=== PATIENT | female | born 1970 | race Caucasian/White ===

== ENCOUNTER 2019-02-12 22:51 | Inpatient (IN) ==
[2019-02-12] MEDS ORDERED: NS 1,000 ML IV ONE (23:06)
--- NOTE | 2019-02-12 23:39 | PROVIDER DOCUMENTATION ---
This chart was entered by Iris Alvares Scribe, acting as scribe for Gracie Mckeon MD. HPI-General Adult - General Source: EMS Unable to obtain history due to:: altered - History of Present Illness -Gen Adult Nature of Presenting Problems: pt is a 48 yr old female presenting via EMS from home, per EMS pt was found by family in the floor and moved to the couch. pt slow to respond, does not follow commands, pt disoriented, repeats her name but does not say or answer anything else. pt has multiple abrasions over body and blood around mouth. no pain response with palpation Location of Pain/Injury: reports: face, hand(s), lower extremity (knees), feet, generalized Pain Radiation: reports: no radiation Severity: reports: mild Onset/Duration: reports: unsure <Gracie Mckeon - Last Filed: 02/13/19 00:55> <Edwar Black - Last Filed: 02/13/19 04:11> - General Stated Complaint: ams Time Seen by Provider: 02/12/19 23:03 Allergies/Adverse Reactions: Patient Allergies Allergy/AdvReac Type Severity Reaction Status Date / Time Penicillins Allergy Intermediate ITCHING Verified 12/27/12 11:18 Home Medications: Home Medication List Medication Instructions Recorded Confirmed Last Taken Type Ketorolac [Toradol] 10 mg PO Q6H PRN PRN #15 tablet 12/27/12 Unknown Rx Methocarbamol [Robaxin-750] 750 mg PO Q8H PRN PRN #15 tablet 12/27/12 Unknown Rx Tramadol [Ultram] 50 mg PO Q6H PRN PRN #20 tablet 12/27/12 Unknown Rx Amitriptyline [Elavil] 10 mg PO QHS 02/13/19 02/13/19 Unknown History Gabapentin 400 mg PO QHS 02/13/19 02/13/19 Unknown History Insulin Regular, Human [Novolin R] 02/13/19 02/13/19 Unknown History Methocarbamol 02/13/19 02/13/19 Unknown History Mirtazapine 45 mg PO QHS 02/13/19 02/13/19 Unknown History Olanzapine 15 mg PO QHS 02/13/19 02/13/19 Unknown History Review of Systems - Adult - REVIEW OF SYSTEMS - ADULT ROS:: unobtainable per condition Constitutional: reports: no symptoms reported Eyes: reports: no symptoms reported Ears, Nose, Mouth & Throat: reports: no symptoms reported Cardiovascular: reports: no symptoms reported Respiratory: reports: no symptoms reported Gastrointestinal: reports: no symptoms reported Genitourinary: reports: no symptoms reported Musculoskeletal: reports: no symptoms reported Integumentary: reports: no symptoms reported Neurological: reports: no symptoms reported Psychiatric: reports: no symptoms reported Endocrine: reports: no symptoms reported Hematologic/Lymphatic: reports: no symptoms reported Allergic/Immunologic: reports: no symptoms reported All Other Systems: Reviewed and Negative <Gracie Mckeon - Last Filed: 02/13/19 00:55> Past History - Adult - PAST MEDICAL HISTORY-ADULT Review of Records: reports: Old Records Reviewed, Nursing Assessment Review, Medications Reviewed, Social history reviewed & non-contributory. Major Childhood Illnesses: reports: denies history Cardiovascular: reports: denies history Respiratory: reports: denies history Gastrointestinal: reports: denies history Obstetrical/Gynecological: reports: denies history Genitourinary: reports: denies history Musculoskeletal: reports: denies history Neurological: reports: denies history Endocrine/Immune: reports: denies history Other Conditions: reports: denies history - IMMUNIZATION STATUS Childhood Immunizations: See Nurse Assessment Flu Vaccine: See Nurse Assessment - FAMILY HISTORY Family History: reviewed, not pertinent - SOCIAL HISTORY Living Situation: family <Gracie Mckeon - Last Filed: 02/13/19 00:55> Physical Exam-General - PHYSICAL EXAM-ADULT Initial Vital Signs Reviewed: Yes - CONSTITUTIONAL General Appearance: alert, no apparent distress, slow to respond, other (confused, repetative speech, does not answer questions) - EYES Eyes: PERRL/EOMI - HEAD, EARS, NOSE, MOUTH & THROAT HENMT: other (abrasion right eyebrow, dried blood around mouth) - NECK Neck: full range of motion, supple - RESPIRATORY Respiratory: lungs clear, normal breath sounds - CARDIOVASCULAR Cardiovascular: normal peripheral pulses, regular rate, rhythm - GASTROINTESTINAL (ABDOMEN) Abdominal Exam: normal bowel sounds, soft - LYMPHATIC Lymphatic: no adenopathy - MUSCULOSKELETAL Extremity: normal range of motion, other (abrasions bilateral knee, feet, hands) - SKIN Integumentary: abrasion(s) (multiple abrasions hand, feet, knees) - PSYCHIATRIC Psych/Mental Status: disoriented x 3 <Gracie Mckeon - Last Filed: 02/13/19 00:55> Progress - PLAN OF CARE/RESULTS Result Diagrams: 02/13/19 00:05 - EKG 1 Time of EKG reading by physician:: 00:15 EKG Read and Signed by:: Edwar Black EKG Interpretation (*Must complete 3 of following elements*): Abnormal (septal infarct-age undetermined) Rate: 67 Rhythm: sinus rhythm with short [place] and premature supraventricular complexes [place]: normal [place] Interval: shortened - CT/MRI 1 CT Study: Cervical Spine, Head Impression: Normal, See EMR Report 2 CT Study: Abdomen, Pelvis, other (chest) Impression: Normal, See EMR Report - CHANGE OF SHIFT REPORT (ED Provider) 1 Report Given and Care Transferred to:: Dr Black Time of Transfer: 23:55 Items Pending: Labs, XRAY Results, CT/MRI Results <Gracie Mckeon - Last Filed: 02/13/19 00:55> - PLAN OF CARE/RESULTS Progress/Plan/Lab Results: Vital Signs - 8 hr 02/13/19 01:00 Temperature 97.5 F L Pulse Rate 61 Respiratory Rate 16 Blood Pressure 163/79 O2 Sat by Pulse Oximetry 98 Laboratory Results - last 24 hr 02/12/19 02/13/19 02/13/19 23:51 00:05 00:05 WBC RBC Hgb Hct MCV MCH MCHC RDW Std Deviation Plt Count MPV Immature Gran % (Auto) Neut % (Auto) Lymph % (Auto) [place] % (Auto) Eos % (Auto) Baso % (Auto) Immature Gran # (Auto) Neut # (Auto) Lymph # (Auto) [place] # (Auto) Eos # (Auto) Baso # (Auto) PT INR PTT (Actin FS) Specimen Type ARTERIAL Sample Site R RADIAL pH 7.38 pCO2 39 pO2 71 HCO3 23.4 Base Excess -1.8 Oxyhemoglobin 92.2 L ABG O2 Sat (Calculated) 16.6 ABG O2 Saturation 96.7 ABG Carboxyhemoglobin 3.70 H ABG Methemoglobin 1.0 Rafi Test YES A-a O2 Difference 30.0 Total Hemoglobin 12.8 Lactate 0.80 Blood Gas Modality ROOM AIR FiO2 % 21.0 Sodium 142 Potassium 4.0 Chloride 107 Carbon Dioxide 24 L Anion Gap 11 BUN 9 Creatinine 0.7 Estimated GFR/1.73 m2 > 60 BUN/Creatinine Ratio 13 Glucose 92 POC Glucose Calculated Osmolality 281 Calcium 9.0 Magnesium Total Bilirubin 0.21 AST 39 H ALT 32 Alkaline Phosphatase 74 Ammonia Creatine Kinase 78 Troponin T Total Protein 6.3 Albumin 4.1 Globulin 2.2 Albumin/Globulin Ratio 1.9 Plasma Lactate Urine Source Urine Color Urine Turbidity Urine pH Ur Specific [place] Urine Protein Ur Glucose (Stick) Ur Ketones (Stick) Urine Blood Urine Nitrite Urine Bilirubin Urobilinogen Dipstick Urine Leukocytes Urine WBC (Auto) Urine RBC (Auto) U Epithel Cells (Auto) Urine Bacteria (Auto) Salicylates < 3.00 L Urine Opiates Screen Ur Oxycodone Screen Ur Methadone, Qual Acetaminophen < 1.2 L Ur Barbiturates Screen Ur Phencyclidine Scrn Ur Amphetamines Screen U Benzodiazepines Scrn Urine Cocaine Screen U Cannabinoids Screen Plasma/Serum Ethyl Alc 02/13/19 02/13/19 02/13/19 00:05 00:05 00:05 WBC 15.51 H RBC 4.19 L Hgb 12.8 Hct 39.0 MCV 93.1 MCH 30.5 MCHC 32.8 L RDW Std Deviation 13.3 Plt Count 212 MPV 10.9 H Immature Gran % (Auto) 0.3 Neut % (Auto) 80.0 H Lymph % (Auto) 14.5 L [place] % (Auto) 3.9 Eos % (Auto) 1.0 Baso % (Auto) 0.3 Immature Gran # (Auto) 0.05 H Neut # (Auto) 12.42 H Lymph # (Auto) 2.25 [place] # (Auto) 0.60 H Eos # (Auto) 0.15 Baso # (Auto) 0.04 PT 13.0 INR 0.91 PTT (Actin FS) 22.1 L Specimen Type Sample Site pH pCO2 pO2 HCO3 Base Excess Oxyhemoglobin ABG O2 Sat (Calculated) ABG O2 Saturation ABG Carboxyhemoglobin ABG Methemoglobin Rafi Test A-a O2 Difference Total Hemoglobin Lactate Blood Gas Modality FiO2 % Sodium Potassium Chloride Carbon Dioxide Anion Gap BUN Creatinine Estimated GFR/1.73 m2 BUN/Creatinine Ratio Glucose POC Glucose Calculated Osmolality Calcium Magnesium Total Bilirubin AST ALT Alkaline Phosphatase Ammonia Creatine Kinase Troponin T < 0.010 Total Protein Albumin Globulin Albumin/Globulin Ratio Plasma Lactate Urine Source Urine Color Urine Turbidity Urine pH Ur Specific [place] Urine Protein Ur Glucose (Stick) Ur Ketones (Stick) Urine Blood Urine Nitrite Urine Bilirubin Urobilinogen Dipstick Urine Leukocytes Urine WBC (Auto) Urine RBC (Auto) U Epithel Cells (Auto) Urine Bacteria (Auto) Salicylates Urine Opiates Screen Ur Oxycodone Screen Ur Methadone, Qual Acetaminophen Ur Barbiturates Screen Ur Phencyclidine Scrn Ur Amphetamines Screen U Benzodiazepines Scrn Urine Cocaine Screen U Cannabinoids Screen Plasma/Serum Ethyl Alc 02/13/19 02/13/19 02/13/19 00:05 00:05 00:05 WBC RBC Hgb Hct MCV MCH MCHC RDW Std Deviation Plt Count MPV Immature Gran % (Auto) Neut % (Auto) Lymph % (Auto) [place] % (Auto) Eos % (Auto) Baso % (Auto) Immature Gran # (Auto) Neut # (Auto) Lymph # (Auto) [place] # (Auto) Eos # (Auto) Baso # (Auto) PT INR PTT (Actin FS) Specimen Type Sample Site pH pCO2 pO2 HCO3 Base Excess Oxyhemoglobin ABG O2 Sat (Calculated) ABG O2 Saturation ABG Carboxyhemoglobin ABG Methemoglobin Rafi Test A-a O2 Difference Total Hemoglobin Lactate Blood Gas Modality FiO2 % Sodium Potassium Chloride Carbon Dioxide Anion Gap BUN Creatinine Estimated GFR/1.73 m2 BUN/Creatinine Ratio Glucose POC Glucose Calculated Osmolality Calcium Magnesium 2.2 Total Bilirubin AST ALT Alkaline Phosphatase Ammonia Creatine Kinase Troponin T Total Protein Albumin Globulin Albumin/Globulin Ratio Plasma Lactate Urine Source CATH Urine Color YELLOW Urine Turbidity CLEAR Urine pH 5.5 Ur Specific [place] 1.028 Urine Protein TRACE A Ur Glucose (Stick) NEGATIVE Ur Ketones (Stick) NEGATIVE Urine Blood NEGATIVE Urine Nitrite NEGATIVE Urine Bilirubin NEGATIVE Urobilinogen Dipstick NORMAL Urine Leukocytes NEGATIVE Urine WBC (Auto) <10 Urine RBC (Auto) <10 U Epithel Cells (Auto) <10 Urine Bacteria (Auto) NEGATIVE Salicylates Urine Opiates Screen NONE DETECTED Ur Oxycodone Screen NONE DETECTED Ur Methadone, Qual NONE DETECTED Acetaminophen Ur Barbiturates Screen NONE DETECTED Ur Phencyclidine Scrn NONE DETECTED Ur Amphetamines Screen NONE DETECTED U Benzodiazepines Scrn NONE DETECTED Urine Cocaine Screen NONE DETECTED U Cannabinoids Screen NONE DETECTED Plasma/Serum Ethyl Alc 02/13/19 02/13/19 02/13/19 00:25 00:32 00:49 WBC RBC Hgb Hct MCV MCH MCHC RDW Std Deviation Plt Count MPV Immature Gran % (Auto) Neut % (Auto) Lymph % (Auto) [place] % (Auto) Eos % (Auto) Baso % (Auto) Immature Gran # (Auto) Neut # (Auto) Lymph # (Auto) [place] # (Auto) Eos # (Auto) Baso # (Auto) PT INR PTT (Actin FS) Specimen Type Sample Site pH pCO2 pO2 HCO3 Base Excess Oxyhemoglobin ABG O2 Sat (Calculated) ABG O2 Saturation ABG Carboxyhemoglobin ABG Methemoglobin Rafi Test A-a O2 Difference Total Hemoglobin Lactate Blood Gas Modality FiO2 % Sodium Potassium Chloride Carbon Dioxide Anion Gap BUN Creatinine Estimated GFR/1.73 m2 BUN/Creatinine Ratio Glucose POC Glucose 94 Calculated Osmolality Calcium Magnesium Total Bilirubin AST ALT Alkaline Phosphatase Ammonia 25 Creatine Kinase Troponin T Total Protein Albumin Globulin Albumin/Globulin Ratio Plasma Lactate 0.9 Urine Source Urine Color Urine Turbidity Urine pH Ur Specific [place] Urine Protein Ur Glucose (Stick) Ur Ketones (Stick) Urine Blood Urine Nitrite Urine Bilirubin Urobilinogen Dipstick Urine Leukocytes Urine WBC (Auto) Urine RBC (Auto) U Epithel Cells (Auto) Urine Bacteria (Auto) Salicylates Urine Opiates Screen Ur Oxycodone Screen Ur Methadone, Qual Acetaminophen Ur Barbiturates Screen Ur Phencyclidine Scrn Ur Amphetamines Screen U Benzodiazepines Scrn Urine Cocaine Screen U Cannabinoids Screen Plasma/Serum Ethyl Alc Orders Category Date Time Status Cardiac Monitoring DIRECTED Care 02/12/19 23:06 Active Finger Stick Blood Sugar (ED) DIRECTED Care 02/12/19 23:06 Active Oxygen Therapy- ED Nursing DIRECTED Care 02/12/19 23:06 Active Saline Loc NOW Care 02/12/19 23:06 Active CHEST-PORTABLE [RAD] Stat Exams 02/12/19 23:[address] HEAD/C-SPINE W/O CONTRAST [CT] Stat Exams 02/12/19 23:[address] THORAX/ABD/PELVIS W/CON [CT] Stat Exams 02/12/19 23:26 Taken ABG [RESP] Routine Lab 02/12/19 23:51 Completed ACETAMINOPHEN [TDM] Stat Lab 02/13/19 00:05 Completed ALCOHOL BLOOD Stat Lab 02/13/19 00:05 Completed AMMONIA [CHEM] Stat Lab 02/13/19 00:49 Completed CBC WITH ELECTRONIC DIFF [HEME] Stat Lab 02/13/19 00:05 Completed CK PROFILE [SP CHEM] Stat Lab 02/13/19 00:05 Completed COMPREHENSIVE METABOLIC PANEL [CHEM] Stat Lab 02/13/19 00:05 Completed LACTATE, PLASMA [CHEM] Stat Lab 02/13/19 00:25 Completed MAGNESIUM [CHEM] Stat Lab 02/13/19 00:05 Completed PROTIME WITH INR [COAG] Stat Lab 02/13/19 00:05 Completed PTT [COAG] Stat Lab 02/13/19 00:05 Completed SALICYLATES [TDM] Stat Lab 02/13/19 00:05 Completed TROPONIN T Stat Lab 02/13/19 00:05 Completed UA NIMS W/REFLEX CULT [URINALYSIS] Stat Lab 02/13/19 00:05 Completed URINE DRUG SCREEN Stat Lab 02/13/19 00:05 Completed 0.9% Sodium Chloride Inj [Ns] 1,000 ml Med 02/12/19 23:06 Discontinued IV 999 mls/hr Altered Mental Status Stat Oth 02/12/19 23:06 Ordered Overdose (suspected) Stat Oth 02/12/19 23:06 Ordered EKG [EKG] Stat Ther 02/12/19 23:06 Ordered Transfer/Admit Order [TRANSFER] Routine Transfer 02/13/19 02:54 Ordered Result Diagrams: 02/13/19 00:05 02/13/19 00:05 <Edwar Black - Last Filed: 02/13/19 04:11> Departure <Gracie Mckeon - Last Filed: 02/13/19 00:55> - Departure Date of Disposition Decision: 02/13/19 Time of Disposition Decision: 02:00 Certified Medical Emergency: Emergent - Critical Care Note This patient required my direct & personal management of CC.: No <Edwar Black - Last Filed: 02/13/19 04:11> - Departure DIAGNOSIS: Altered mental status, unspecified Disposition: ADMITTED INPATIENT 09 Condition: Serious Attestation - Physician/ RAGHAV Attestation The physician spent face to face time with patient:: Yes Advanced Practice Provider documentation review:: Supervising physician onsite and consulted in the evaluation and care of this patient. The physician did have a face to face encounter with the patient. <Edwar Black - Last Filed: 02/13/19 04:11> This chart was documented by the indicated scribe, (Iris Alvares, Rachelibsavanah) and accurately reflects the services I performed and decisions made by me, Gracie Mckeon MD, as attested by the provider's signature.
[2019-02-13] LABS: ALLEN TEST YES; BE -1.8 mmoll (-3.0-3.0); BLOOD TYPE ARTERIAL; HCO3-(ACT) 23.4 mmoll (20.0-26.0); O2(CT) 16.6 mL/dL (15.0-23.0); O2HB 92.2 % (95.0-99.0); PCO2(98.6) 39 mmHg (35-45); PO2(98.6) 71 mmHg (60-100); SAMPLE BLOOD; SAO2 96.7 % (95.0-100.0); THB 12.8 g/dL (11.5-17.4); pH(98.6) 7.38 (7.35-7.45)
[2019-02-13 00:01] LABS: MODALITY ROOM AIR
[2019-02-13 00:32] LABS: URINE SOURCE CATH
[2019-02-13 00:40] LABS: BASO# 0.04 X1000 (0.0-0.2); BASO% 0.3 % (0.0-0.8); EOS# 0.15 X1000 (0.0-0.7); HEMOGLOBIN 12.8 g/dL (12.0-16.0); IMM GRAN# 0.05 X1000 (0.0-0.04); IMM GRAN% 0.3 % (0.0-0.5); LYMPH# 2.25 X1000 (1.2-3.4); LYMPH% 14.5 % (20.5-51.1); MCH 30.5 PG (27-31); MCHC 32.8 g/dL (33-37); MCV 93.1 FL (81-99); MONO% 3.9 % (1.7-9.3); MPV 10.9 FL (7.4-10.4); NEUT# 12.42 X1000 (1.4-6.5); PLT 212 X1000 (130-400); RBC 4.19 XMIL (4.2-5.4); RDW 13.3 % (11.5-14.5); WBC 15.51 X1000 (4.8-10.8)
[2019-02-13 01:02] LABS: INR 0.91; PTT 22.1 Seconds (22.3-41.8)
[2019-02-13 01:08] LABS: BILIRUBIN URINE NEGATIVE (NEGATIVE); BLOOD URINE NEGATIVE (NEGATIVE); COLOR YELLOW; GLUCOSE URINE NEGATIVE (NEGATIVE); KETONE URINE NEGATIVE (NEGATIVE); LEUKOCYTES URINE NEGATIVE (NEGATIVE); NITRITE URINE NEGATIVE (NEGATIVE); PH URINE 5.5; PROTEIN URINE TRACE mg/dL (NEGATIVE); TURBIDITY URINE CLEAR (CLEAR); UROBILINOGEN URINE NORMAL (NORMAL)
[2019-02-13 01:09] LABS: UR EPITHELIAL CELLS <10 /HPF (<10); URINE BACTERIA NEGATIVE /HPF; URINE RBC <10 /HPF (<10); URINE WBC <10 /HPF (<10)
[2019-02-13 01:10] LABS: ACETAMINOPHEN < 1.2 ug/mL (10-30); AGAP 11; ALB/GLOB RATIO 1.9; ALBUMIN 4.1 g/dL (3.5-5.0); ALKALINE PHOSPHATASE 74 U/L (32-104); BUN 9 mg/dL (8-22); CHLORIDE 107 mmol/L (98-107); CK PROFILE 78 U/L (24-173); COSMO 281; CREATININE 0.7 mg/dL (0.5-0.9); ESTIMATED GFR > 60; GLUCOSE 92 mg/dL (70-104); GOT 39 U/L (10-30); GPT 32 U/L (10-36); SALICYLATES < 3.00 mg/dL (3-10); SODIUM 142 mmol/L (136-145); TCO2 24 mmol/L (25-35); TOTAL BILIRUBIN 0.21 mg/dL (0.20-1.00); TOTAL PROTEIN 6.3 g/dL (6.3-8.3)
[2019-02-13 01:13] LABS: UR AMPHETAMINES QUAL NONE DETECTED (NONE DETECT); UR BARBITUATES QUAL NONE DETECTED (NONE DETECT); UR BENZODIAZEPIN QUAL NONE DETECTED (NONE DETECT); UR CANNABINOIDS QUAL NONE DETECTED (NONE DETECT); UR COCAINE QUAL NONE DETECTED (NONE DETECT); UR METHADONE QUAL NONE DETECTED (NONE DETECT); UR OPIATES QUAL NONE DETECTED (NONE DETECT); UR OXYCODONE QUAL NONE DETECTED (NONE DETECT); UR PCP QUAL NONE DETECTED (NONE DETECT)
[2019-02-13 01:56] LABS: SP GRAVITY URINE 1.028
[2019-02-13] MEDS ORDERED: OFIRMEV 1000 MG/ISOTONIC SOLN 1,000 MG/100 ML BOTTLE IV ONE (05:12)
--- NOTE | 2019-02-13 06:06 | HISTORY AND PHYSICAL ---
PRIMARY CARE PROVIDER: Dr. Bob. PSYCHIATRIST: Dr. Janki Joyce MD CHIEF COMPLAINT: Altered mental status. HISTORY OF PRESENT ILLNESS: Ms. Ny is a 48-year-old female with a past medical history most notable for depression, diabetes mellitus type 1, and thyroid disease. The patient's and nephew were present at bedside during the time of my examination. They report that just prior to the patient's arrival to the ER at approximately 8:00 in the evening that he did call and try to wake Ms. Ny up. She had laid down and was sleeping before going to work. Prior to her lying down to go to sleep he states that she did work outside for a bit earlier today and laid down to take a nap. He tried to call her to make sure that she was up getting ready for work though he could not get her to answer the phone. Given this, he did call his nephew who lives with him and he went to check on her, and found her lying on the floor face down. Nephew reported that it took him approximately 5 to 10 minutes to wake the patient up. He reports that during this time the patient was not responsive. She would not answer questions or follow commands. He states that she was having shaking type motion of bilateral upper extremities and bilateral lower extremities. He said he did check her blood sugar, and it was slightly elevated so he did give her 3 units of insulin. They ultimately did bring her to the emergency department for further evaluation. The patient's reports that her mother for what I think was approximately 1 year ago. He states that since that time that she has had a lot of problems with depression. He reports that she has been taking multiple medicines for this, and that she was having some memory problems where she would lose hours and days at a time that she could not remember what had been going on during this time. Given this, she had decided to cut back on some of her medicines and stop other ones all together. He states that some of her other depression medications she did cut back on though he knows that she did stop taking her Xanax and Valium approximately 1 week ago. He denies her having any known substance abuse of alcohol prescription medications or illicit drugs. He also denies her having any known history of suicidal or homicidal ideations or attempts. Upon my evaluation in the ER, the patient was awake. She would go from a being sleeping with her eyes closed to being kind of restless and agitated though this is mainly during my exam. She would open her eyes by the verbal calling of her name though was not really able to get her to follow commands. She did tell me that she was cold, that her right arm hurt, and did recognize her and state his name at bedside. Though other than this, the patient is not alert and oriented to person, place or time. In the ER given that the patient did fall, they did do several radiology studies which included a CT of the chest, abdomen and pelvis. There were some ground- glass opacities in the posterior lobes that showed no suspicious nodule. There was no pleural effusion or pneumothorax. The overall impression of the chest, abdomen and pelvis was no acute disease. There also was a CT head and C-spine without contrast performed which showed no acute intracranial disease. There is no cervical spine fracture noted. EKG shows sinus rhythm with short MS with premature supraventricular complexes at a rate of 67 with a QTc of 429. There was some leukocytosis noted with a white blood cell count of 15,510 though other than this all other labs were pretty unremarkable. Urine drug screen was negative. Salicylate and acetaminophen level as well as alcohol level was negative as well. At this time, the patient will be placed inpatient admission to the ICU for further treatment and evaluation. PAST MEDICAL HISTORY: 1. Depression. 2. Thyroid disease. 3. Diabetes mellitus type 1. PAST SURGICAL HISTORY: Cervical neck surgery. SOCIAL HISTORY: The patient is a 1 pack per day smoker. She has smoked for several years. There is no known alcohol or illicit drug use. 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 FAMILY HISTORY: Positive for her mother having a history of dementia, hypertension and diabetes mellitus. Her father had a history of multiple myeloma. ALLERGIES: Patient has allergies to penicillin though it is unknown what type of reaction she had to this. HOME MEDICATIONS: 1. Elavil 10 mg p.o. at bedtime. 2. Gabapentin 4 mg p.o. at bedtime. 3. Mirtazapine 45 mg p.o. at bedtime. 4. Olanzapine 15 mg p.o. at bedtime. Though these following medicines were not listed in her home medication list obtained by the nurse it was in her external medication history where she has recently gotten these prescriptions filled. These other medicines include Trileptal, Effexor, Xanax and Valium. DIAGNOSTIC DATA/LABORATORY RESULTS: 1[place] [address], hemoglobin 12.8, hematocrit 39 and platelet count is 212,000. PT 13, INR 0.91, and PTT is 22.1. Sodium 142, potassium 4, chloride 107, serum bicarb 24, BUN 9, creatinine 0.7, glucose 92, calcium 9, and magnesium 2.2. Liver function tests within normal limits except for AST is elevated at 39. CK 78. Troponin less than 0.01. Plasma lactate is 0.9. Serum salicylate level is less than 3. Serum acetaminophen level is less than 1.2. Serum alcohol was 0. Urine drug screen was negative. 2. CT head and C-spine without contrast showed no acute intracranial disease. There was no cervical spine fracture noted. Please see full CT report for full details of report findings. CT of chest, abdomen and pelvis with IV contrast showed that there were some ground-glass opacities in the posterior lower lobes. No suspicious nodule present. There is no pleural effusion or pneumothorax. There was a subtle nodularity of the liver contour though no focal liver lesion. Other than this, the radiologist impression was no acute disease. Please see full report for detailed findings. 3. EKG showed sinus rhythm with short MS with premature supraventricular complexes at a rate of 67 with a QTc of 429. 4. Urinalysis was obtained via catheter showed positive for trace protein. It was negative for glucose, ketones, blood, nitrites, leukocytes, white blood cells, or bacteria. Her urine was negative. PHYSICAL EXAMINATION: VITAL SIGNS: Temperature 97.5 degrees, heart rate 61, respirations 16, blood pressure 163/79, and oxygen saturation is 98% on room air. GENERAL: Ms. Ny is a 48-year-old female who was sitting on the ER stretcher. She was restful sitting with her eyes closed at times. Other times, she was very fidgety. She is alert and oriented x0. HEENT: Oral mucosa was slightly dry. NECK: Supple. Trachea midline. No carotid bruits noted upon auscultation bilaterally. CARDIOVASCULAR: Patient has S1-S2 present. No murmurs, gallops, or rubs appreciated with a regular rate and rhythm. PULMONARY: Patient has symmetrical chest expansion bilaterally. Lung sounds are clear to auscultation in bilateral full amato. ABDOMEN: Soft, nontender, and nondistended. Bowel sounds present in all 4 quadrants and were normoactive. EXTREMITIES: No cyanosis, clubbing, or edema noted. Pulse, motor and sensory were intact in all extremities. Radial and pedal pulses were 3+ bilaterally. Radial and pedal pulses were 3+ bilaterally. INTEGUMENTARY: Skin is pink, warm, and dry though she does have an abrasion noted to her right eye as well as she does have some dry blood on her lips though we did check her lips and mouth, there does not appear to be any large lacerations. At this time, I am unsure if the blood is coming from her mouth or her lips. Though either way, the bleeding is controlled. There will be a small bandage applied. NEUROLOGICAL: The patient is alert and oriented x0. She is able to move all extremities. She did tell me that she was cold, that her right arm hurt, and did identify her at bedside and tell me his first name. Though other than this, she could not tell me who she was, where she was or how she got here. She was unable really to follow any commands or instructions. Pupils were 4 mm bilaterally and slightly sluggish. Though other than this, there were no focal neurological deficits noted at this time though her neurological exam is limited due to her current condition and mentation. ASSESSMENT AND PLAN: 1. Encephalopathy. This could be multifactorial though I do feel at this is toxic in nature. The patient does take several medications that could affect her neurological status or this could be secondary to a postictal phase. Her nephew who did find her down at the house did state she was having a shaking type motion in her hands and legs. The patient had been altered since. She has no known history of seizures in the past. Though her did state that due to some side effects she was having of some of the medications that she did stop taking her Xanax and Valium 1 week ago. This may have caused the seizure, and the seizure may be causing her postictal phase as well as her encephalopathy. We will continue with a continuous cardiac telemetry and pulse oximetry. We will do frequent vital signs and neurological checks. Electrolytes were within normal limits. We have placed p.r.n. orders for seizures if needed. We have also placed her on aspiration and seizure precautions. We will provide some IV fluid hydration with normal saline. We also placed a consult with Dr. Burnett, and will await his evaluation and further recommendations for management. 2. Possible seizure. We will continue with treatment as mentioned above for #1. 3. History of depression. The patient reportedly has a history of depression. She does take several medicines for this. Though her denied her having any history of suicidal ideations or homicidal ideations. He also denied her having any previous attempts. He denied her also having any history of suicide attempts such as taking medicines to try to harm herself. At this time due to the patient's current mentation, we were unable to ask her if she had possibly tried to harm herself or commit suicide. We will continue to monitor this closely, and once she is awake and alert we will readdress this. 4. Leukocytosis. This could be reactive due to the patient's possible seizure activity. She has had no reported fever. She has been afebrile since arrival. She has not reported a cough or shortness of breath to her previously. Her lung sounds are clear to auscultation. A CT chest did show some ground-glass opacities in the posterior lower lobes though there was no suspicious nodule noted. There is no pleural effusion or pneumothorax. Urinalysis did not show any signs of infection. At this time, there is no known source of infection. We will continue to monitor this. 5. Deep vein thrombosis prophylaxis provided with sequential compression devices. 6. Diabetes mellitus type 1. The patient is an insulin-dependent diabetic. We will do pattern fingerstick blood sugars with a patient specific regular insulin sliding scale, and not to be treated until it is above 200 given that the patient is altered and NPO at this time. 7. She has been placed in the ICU for close monitoring. We will do vital signs per ICU protocol. She did receive a 1 L normal saline bolus in the ER. We will continue normal saline at 100 mL/h. We have placed p.r.n. orders for Ativan if needed for seizures. We will repeat a CBC and CMP tomorrow. Further orders and recommendations pending hospital course, diagnostic studies, and physician evaluation. Also, pending studies at this time are a right forearm and right humerus. TIME SPENT: Critical care time for this patient was 45 minutes. Dictated by HANNAH Osorio for José Roberts MD cc: MD Vel Monroe MD
[2019-02-13] MEDS: NS 1,000 ML IV SCH ×2 (06:33→15:55)
[2019-02-13] MEDS: HUMULIN R SUBQ SCH ×4 (06:40→20:55)
[2019-02-13] MEDS: PEPCID IV SCH ×3 (06:41→19:39)
[2019-02-13] MEDS: SODIUM CHLORIDE 0.9% INJ SCH (06:41)
--- NOTE | 2019-02-13 06:54 | Diag Imaging Result Doc PS360 ---
EXAM: CHEST-PORTABLE 02/12/2019 HISTORY: ams TECHNIQUE: AP portable at 2350 COMMENT: The patient is rotated slightly to the right. There is no evidence of focal pulmonary opacity. The heart size and primary vascularity are within normal limits. IMPRESSION: No acute disease. Electronically signed by Mihir Gonzalez 02/13/2019 6:52 AM
--- NOTE | 2019-02-13 07:12 | EKG Report ---
Test Performed on : 02/13/2019 00:13:03 AM Test Reason : ams Blood Pressure : / mmHG Vent. Rate : 067 BPM Atrial Rate : 067 BPM P-R Int : 110 ms QRS Dur : 054 ms QT Int : 406 ms P-R-T Axes : 080 070 055 degrees QTc Int : 429 ms Sinus rhythm. with short MN with premature supraventricular complexes. Septal infarct , age undetermined Abnormal ECG No previous ECGs available Unconfirmed Result
--- NOTE | 2019-02-13 07:21 | Diag Imaging Result Doc PS360 ---
EXAM: FOREARM-RIGHT 02/13/2019 HISTORY: Fall,Right Arm Pain/Injury TECHNIQUE: Right forearm two views COMMENT: There is no evidence of fracture dislocation or periosteal reaction. IMPRESSION: No evidence of acute disease. Electronically signed by Mihir Gonzalez 02/13/2019 7:19 AM
--- NOTE | 2019-02-13 07:35 | Diag Imaging Result Doc PS360 ---
EXAM: HUMERUS-RIGHT 02/13/2019 HISTORY: Fall,Right Arm Pain/Injury TECHNIQUE: Right humerus two views COMMENT: There is no evidence of fracture or dislocation or periosteal reaction. IMPRESSION: No acute abnormality. Electronically signed by Mihir Gonzalez 02/13/2019 7:33 AM
--- NOTE | 2019-02-13 07:46 | Diag Imaging Result Doc PS360 ---
EXAM: CT HEAD/C-SPINE W/O CONTRAST 02/12/2019 HISTORY: ams TECHNIQUE: This exam was performed using automated exposure control, adjustment of mA or kV according to patient size, and/or use of iterative reconstruction technique. COMMENT: There is no evidence of mass effect, bleed, abnormal extra-axial fluid collection, or hydrocephalus. The calvarium is intact. The visualized paranasal sinuses are clear. Cervical spine: There has been anterior fusion at the C5-6 and C6-7 levels. There is no evidence of prevertebral soft tissue swelling and no evidence of fracture or subluxation is present. There is no evidence of spinal or foraminal stenosis. IMPRESSION: No evidence of acute disease. Electronically signed by Mihir Gonzalez 02/13/2019 7:44 AM
--- NOTE | 2019-02-13 07:55 | Diag Imaging Result Doc PS360 ---
EXAM: CT THORAX/ABD/PELVIS W/CON 02/12/2019 HISTORY: ams TECHNIQUE: This exam was performed using automated exposure control, adjustment of mA or kV according to patient size, and/or use of iterative reconstruction technique. COMMENT: Thorax: There is dependent atelectasis particularly in the left lower lobe. There are no abnormal fluid collections in the chest. The aorta is normal in caliber and there is no evidence of dissection. There is no evidence of filling defects in the pulmonary arteries. The left ventricle is slightly distended. There are bone islands in T7 and T11. No evidence of acute bony abnormality is present. ABDOMEN: The liver, spleen, adrenal glands, and pancreas are within normal limits. There is lobulation of the upper pole of the right kidney with some distended calyces. This may be congenital or due to previous pyelonephritis. The appearance of the right kidney has not changed significantly since 04/29/2015. The left kidney is unremarkable. There is stool throughout the colon. The small bowel is not distended. There are calcifications in the aorta. There is no evidence of aneurysm. No significant adenopathy is present. Pelvis: The appendix is normal in appearance. The urinary bladder is slightly distended. There are prominent uterine vessels. There is some fluid in the endometrial canal. There is a small amount of free fluid in the cul-de-sac. There are no masses. There may be a corpus luteum cyst on the left. The regional skeleton is intact. IMPRESSION: Nonspecific pelvic free fluid. Mild constipation. Bibasilar atelectasis. Possible pelvic vascular congestion. Electronically signed by Mihir Gonzalez 02/13/2019 7:52 AM
[2019-02-13] MEDS ORDERED: TYLENOL PR PRN (11:00)
[2019-02-13 11:59] LABS: URINE SOURCE CATH
[2019-02-13 12:10] LABS: BILIRUBIN URINE NEGATIVE (NEGATIVE); BLOOD URINE SMALL (NEGATIVE); COLOR YELLOW; GLUCOSE URINE NEGATIVE (NEGATIVE); KETONE URINE NEGATIVE (NEGATIVE); LEUKOCYTES URINE NEGATIVE (NEGATIVE); NITRITE URINE NEGATIVE (NEGATIVE); PH URINE 6.5; PROTEIN URINE NEGATIVE (NEGATIVE); SP GRAVITY URINE 1.029; TURBIDITY URINE CLEAR (CLEAR); UROBILINOGEN URINE NORMAL (NORMAL)
[2019-02-13 12:12] LABS: UR EPITHELIAL CELLS <10 /HPF (<10); URINE BACTERIA NEGATIVE /HPF; URINE RBC <10 /HPF (<10); URINE WBC <10 /HPF (<10)
--- NOTE | 2019-02-13 12:53 | PROGRESS NOTE ---
DATE: 02/13/2019 The patient is a 48-year-old white female was admitted yesterday with altered mental status. Her lactate level and TSH level are normal. She is still disoriented this morning. Overall condition is unchanged. Her vital signs are stable. Lungs clear. Heart sounds are normal. We will probably put her on a full liquid diet today. -9 cc: MD Vel Maxwell MD
[2019-02-13] MEDS: ZOFRAN IV PRN (19:44)
[2019-02-13] MEDS: TYLENOL PO PRN (22:46)
[2019-02-13] MEDS: ATIVAN IV PRN (23:32)
[2019-02-14] MEDS: NS 1,000 ML IV SCH (01:14)
[2019-02-14] MEDS: PEPCID IV SCH ×2 (05:23→16:56)
[2019-02-14] MEDS: SODIUM CHLORIDE 0.9% INJ SCH (05:24)
[2019-02-14 06:39] LABS: BASO# 0.05 X1000 (0.0-0.2); BASO% 0.6 % (0.0-0.8); EOS# 0.09 X1000 (0.0-0.7); EOS% 1.1 % (0.0-10.0); HEMATOCRIT 33.1 % (37.0-47.0); HEMOGLOBIN 11.3 g/dL (12.0-16.0); IMM GRAN# 0.02 X1000 (0.0-0.04); IMM GRAN% 0.3 % (0.0-0.5); LYMPH# 2.62 X1000 (1.2-3.4); LYMPH% 33.5 % (20.5-51.1); MCH 31.3 PG (27-31); MCHC 34.1 g/dL (33-37); MCV 91.7 FL (81-99); MONO# 0.43 X1000 (0.11-0.59); MONO% 5.5 % (1.7-9.3); MPV 10.6 FL (7.4-10.4); NEUT# 4.62 X1000 (1.4-6.5); PLT 189 X1000 (130-400); RBC 3.61 XMIL (4.2-5.4); RDW 12.8 % (11.5-14.5); WBC 7.83 X1000 (4.8-10.8)
[2019-02-14 06:57] LABS: AGAP 10; ALB/GLOB RATIO 1.5; ALBUMIN 3.5 g/dL (3.5-5.0); ALKALINE PHOSPHATASE 70 U/L (32-104); BUN 4 mg/dL (8-22); CALCIUM 8.1 mg/dL (8.8-10.2); CHLORIDE 110 mmol/L (98-107); COSMO 280; CREATININE 0.5 mg/dL (0.5-0.9); ESTIMATED GFR > 60; GLUCOSE 95 mg/dL (70-104); GOT 21 U/L (10-30); GPT 23 U/L (10-36); POTASSIUM 3.3 mmol/L (3.5-5.1); SODIUM 142 mmol/L (136-145); TCO2 22 mmol/L (25-35); TOTAL BILIRUBIN 0.33 mg/dL (0.20-1.00); TOTAL PROTEIN 5.8 g/dL (6.3-8.3)
[2019-02-14] MEDS: HUMULIN R SUBQ SCH ×4 (07:25→20:20)
[2019-02-14] MEDS: ZOFRAN IV PRN (12:07)
[2019-02-14] MEDS: ATIVAN IV PRN ×2 (12:11→20:12)
--- NOTE | 2019-02-14 14:32 | CONSULTATION ---
DATE OF CONSULTATION: 02/14/2019 HISTORY OF PRESENT ILLNESS: Ms. Ny is 48 years old and she had an episode of altered awareness with shaking, question of seizure. History from attentive family at the bedside and from review of hospital record is that she did not respond to phone call at home prompting family to check on her. She was found down and seemed unresponsive with some generalized shaking in the limbs. She was helped up. There is brief cell phone video provided today showing her seated on a closed toilet seat with some tremulousness and generalized shakiness but no rhythmic shaking, no definite clonus, not unconscious. She was brought to the hospital, evaluated and admitted. She has not had clinically recognized seizure here. There is report that she had been taking diazepam 10 mg b.i.d. chronically (PDMP shows she was filling prescriptions for #60 diazepam 10 mg tablets every 27-29 days for at least the last 6-8 months) with last prescription filled 01/12/2019. She reports she stopped diazepam and started alprazolam with #60 1 mg tablets dispensed on 01/27/2019. She and report that she stopped alprazolam approximately a week ago. She has had some nervous and jittery feeling. There is report that she had possibly fallen and had some bruises but no clear recollection of that. She had not had witnessed unresponsiveness until yesterday. reports finding her "passed out" in the past and sometimes finding her with the appearance that she had been down and was trying to get up. Not clear that these events correlate with benzodiazepine withdrawal or with any other medication change. She denies ethanol use. I saw her for blackout spells in 2017 with different features. Workup then including EEG was all unremarkable. Workup here includes noncontrast CT reported unremarkable. Urine drug screen was all negative. WBC count was initially 15,000 and later 7000. She has been afebrile. PAST HISTORY: Reported remarkable for depression, hypothyroidism, diabetes mellitus type 2. Blood sugars have been 90s-100s here. PHYSICAL EXAMINATION: Neurologic: On exam, Ms. Ny is awake, alert, attentive. She was sometimes a little bit slow to answer questions but answered correctly. She is oriented. Speech is not significantly dysarthric. Language function is intact on careful bedside testing. I did not test her cognitive function. There is no meningismus. She has full visual amato tested by confrontational finger counting. Extraocular movements are full. Facial motility is symmetric. Gag is intact. Tongue is midline. Strength is normal in the arms and legs. Limb tone is symmetric. She did well on [id number] testing. I did not test her gait. She reports good pinprick appreciation symmetrically over the limbs. Proprioception is good at the great toe MTP joint bilaterally. Plantar response is silent bilaterally. Ankle reflexes are inconsistently trace bilaterally. IMPRESSION: Poor responsiveness with shaking. There is question of generalized seizure. If this was seizure, benzodiazepine withdrawal seems the most likely explanation. I do not find any significant metabolic problem on the chemistry profile. I do not see anything else on her medication list that likely would be associated with seizure or encephalopathy either with intoxication or in withdrawal. The timeframe is a little bit longer than average if she had not taken benzodiazepine in the week prior to spell, but I am not certain her history is completely valid in regard to time she stopped benzodiazepine. PLAN: I have ordered EEG. If she is recovered and ready to go home prior to EEG, EEG can be done later as an outpatient. I will be glad to see her in the office to follow up. I would not start medicine for seizure control unless there is further episode or significant EEG finding. Thanks for asking Neurology to see Ms. Ny. cc: MD Vel Connell III, MD MTDD
[2019-02-14] MEDS: TYLENOL PO PRN ×2 (15:38→21:58)
[2019-02-14] MEDS: KLOR-CON PO SCH (20:12)
[2019-02-15] MEDS: ATIVAN IV PRN ×2 (00:15→07:07)
[2019-02-15] MEDS: PEPCID IV SCH (05:51)
[2019-02-15] MEDS: HUMULIN R SUBQ SCH ×2 (06:16→10:29)
[2019-02-15 06:44] LABS: AGAP 12; BUN 6 mg/dL (8-22); CALCIUM 8.4 mg/dL (8.8-10.2); CHLORIDE 110 mmol/L (98-107); COSMO 285; CREATININE 0.7 mg/dL (0.5-0.9); ESTIMATED GFR > 60; GLUCOSE 108 mg/dL (70-104); POTASSIUM 3.3 mmol/L (3.5-5.1); SODIUM 144 mmol/L (136-145); TCO2 22 mmol/L (25-35)
[2019-02-15] MEDS ORDERED: XANAX PO PRN (09:17)
[2019-02-15] MEDS: KLOR-CON PO SCH (09:44)
--- NOTE | 2019-02-15 10:03 | DISCHARGE SUMMARY ---
ADMISSION DATE: 02/12/2019 DISCHARGE DATE: 02/15/2019 FINAL DIAGNOSES: 1. Altered mental status, most likely benzodiazepine withdrawal, tremor related to the above. 2. Diabetes, insulin dependent. 3. Chronic anxiety. 4. Depression. DISCHARGE MEDICATION: Unusual medication at home plus prescription for Xanax 1 mg (14) 1 b.i.d. BRIEF HISTORY: This is one of a few [facility] admissions for this 48-year-old white female, who presented to the emergency room with history of acute mental change. There was mild tremor also. CT of her head and cervical spine revealed no acute disease. CT of the abdomen and pelvis revealed nonspecific pelvic free fluid and mild constipation. There was mild bibasilar atelectasis. X-ray of her right forearm revealed no fracture or dislocation. Right humerus x-ray revealed no fracture. INITIAL LABORATORY DATA: Hemoglobin 12.8, hematocrit 39.0, white blood count 91472. Sodium 144, potassium 4.3, BUN 6, creatinine 0.7, calcium 8.4, glucose 108. HOSPITAL COURSE: Consult was obtained with Dr. Burnett, who felt that her mental change was related to benzodiazepine withdrawal. He ordered an EEG, but stated that if she was able to go home prior to the procedure being done, that it could be done as an outpatient. She is anxious to go home today and is feeling well. Mental status appears to be baseline. She is discharged home on the above medications to see Dr. Bob late next week for follow up in his office. cc: MD Vel Marx MD
[2019-02-15 11:29] VITALS: BP 125/77
--- NOTE | 2019-02-17 04:01 | PROGRESS NOTE ---
DATE: 02/14/2019 Madison says she has bipolar disease and she was on several nerve pills and anxiety pills by the psychiatrist. She suddenly stopped all of it, and it could have made her confused. She is still somewhat confused. We are going to change her diet to soft diet today. Overall, condition is otherwise unchanged. We will repeat electrolytes in the morning. If she is mentally completely alert, then she can be moved out tomorrow. -6 cc: MD Vel Maxwell MD
== END 2019-02-15 11:55 | disposition home or self-care (01) | DRG 896 ==
LOC: ED 22:51 → ICU 02-13 03:28 → SUPCPDRO 02-13 03:28 → SUATTDRO 02-13 03:28
PROVIDERS: ADMIT Internal Medicine; ATTEND Internal Medicine
CPT/HCPCS: 70450; 71010; 71045; 71260; 72125; 73060; 73090; 74177; 80048; 80053; 80101; 80196; 80301; 80307; 80320; 80324; 80329; 80345; 80346; 80353; 80358; 80361; 80365; 81001; 81025; 82003; 82055; 82140; 82550; 82805; 82948; 83605; 83735; 83992; 84443; 84484; 85025; 85610; 85730; 93005; 94761; 94799; 95816; A9270; G0431; G0434; G0479; G0480; G6038; G6039; G6040; J0131; J2060; J2405; J7030; Q9967; S0028; XXXXX